=== PATIENT | male | born 1940 | race Caucasian/White ===

== ENCOUNTER 2022-10-06 21:30 | Inpatient (IN) | payer MEDICARE, BC, OTHER ==
[2022-10-06 22:45] LABS: #Basophils 0.1 thou/uL (0.0-0.2); #Eosinphils 0.1 thou/uL (0.0-0.7); #Monocytes 1.2 thou/uL (0.11-0.59); #Neutrophils 10.2 thou/uL (1.40-6.50); %Basophils 0.7 % (0.0-1.0); %Eosinophils 0.7 % (0.0-10.0); %Neutrophils 68.8 % (42.0-75.0); Hemoglobin 13.4 g/dL (14.0-18.0); Mean Corpuscular HGB CONC 31.8 g/dL (32.0-36.0); Mean Corpuscular Hemoglobin 31.3 pg (27.0-31.0); Mean Corpuscular Volume 98.4 fl (78.0-98.0); Platelet Count 245 10x3/uL (130-400); RBC Distribution Width 16.8 % (11.5-14.5); Red Blood Cell (RBC) Count 4.28 mill/uL (4.70-6.10); White Blood Cell (WBC) Count 14.9 10x3/uL (4.8-10.8)
[2022-10-06 23:08] LABS: ALT (SGPT) 18 U/L (8-55); AST (SGOT) 30 U/L (5-34); Alkaline Phosphatase 88 U/L (40-110); Anion Gap 17 mmol/L (10-20); BUN (Urea Nitrogen) 29 mg/dL (8.4-25.7); Calc. Creatinine Clearance 0 mL/min (70-130); Calcium 9.2 mg/dL (7.8-10.44); Carbon Dioxide 18 mmol/L (23-31); Chloride 108 mmol/L (98-107); Estimated GFR 53; Glucose 128 mg/dL (83-110); Potassium 4.4 mmol/L (3.5-5.1); Sodium 139 mmol/L (136-145)
[2022-10-06] MEDS ORDERED: Morphine 4 MG/ML VIAL ONE (23:30)
[2022-10-06] MEDS ORDERED: Vancomycin 1 GM/200 ML (FROZEN) BAG ONE (23:30)
[2022-10-06 23:44] LABS: INR-International Normal Ratio 1.1
[2022-10-06 23:45] LABS: PTT 27.3 sec (22.9-36.1)
[2022-10-06] MEDS ORDERED: HYDROcodone/Acetaminophen 7.5/325 mg Tablet PO PRN (23:50)
[2022-10-06] MEDS ORDERED: Morphine 4 MG/ML VIAL SLOW IVP PRN (23:50)
[2022-10-07] MEDS ORDERED: Morphine 2 MG/ML VIAL ONE (00:27)
[2022-10-07 01:35] VITALS: BMI 27.1
[2022-10-07] MEDS: Dextrose 5 % And 0.9 % NaCl 1,000 ML IV SCH ×3 (01:35→21:42)
[2022-10-07] MEDS ORDERED: Mineral Oil Sterile 10 ML VIAL ONE (06:17)
[2022-10-07] MEDS ORDERED: Bupivacaine PF 0.5% 30 ML VIAL ONE (06:17)
[2022-10-07] MEDS ORDERED: Thrombin 5000 UNITS/5 ML VIAL ONE (06:17)
[2022-10-07] MEDS ORDERED: Bacitracin Zinc Ointment 30 gm TUBE ONE (06:17)
[2022-10-07] MEDS ORDERED: Vancomycin 1 GM VIAL ONE (06:34)
[2022-10-07] MEDS ORDERED: Vancomycin 1 GM/200 ML (FROZEN) BAG ONE (06:57)
[2022-10-07] MEDS ORDERED: Phenylephrine 10 MG/ML VIAL ONE (07:06)
[2022-10-07] MEDS ORDERED: Lidocaine 1% PF 5 ML VIAL ONE (07:17)
[2022-10-07] MEDS ORDERED: PROPOFOL 200 MG/20 ML VIAL ONE (07:17)
[2022-10-07] MEDS ORDERED: Ondansetron PF 4 MG/2 ML Vial ONE (07:17)
[2022-10-07] MEDS ORDERED: Dexamethasone 20 MG/5 ML VIAL ONE (07:17)
[2022-10-07] MEDS ORDERED: Promethazine HCl 25 MG/ML VIAL IM PRN (09:00)
[2022-10-07] MEDS ORDERED: Ondansetron HCl/PF 4 MG/2 ML Vial IVP PRN (09:00)
[2022-10-07] MEDS ORDERED: fentaNYL 50 mcg/mL 1 mL Vial ONE ×2 (09:28→09:41)
[2022-10-07] MEDS: Vancomycin 1 GM in Premix Bag 1 BAG IVPB SCH (10:26)
[2022-10-07] MEDS ORDERED: NITROGLYCERIN 2.5 MG PO PRN ×2 (11:14→12:46)
[2022-10-07 16:52] LABS: #Basophils 0.1 thou/uL (0.0-0.2); #Monocytes 0.1 thou/uL (0.11-0.59); #Neutrophils 11.1 thou/uL (1.40-6.50); %Basophils 0.8 % (0.0-1.0); %Eosinophils 0.1 % (0.0-10.0); %Lymphocytes 6.6 % (21.0-51.0); %Neutrophils 88.9 % (42.0-75.0); Hemoglobin 12.9 g/dL (14.0-18.0); Mean Corpuscular HGB CONC 30.9 g/dL (32.0-36.0); Mean Corpuscular Hemoglobin 30.6 pg (27.0-31.0); Mean Platelet Volume 9.5 fL (7.4-10.4); Platelet Count 249 10x3/uL (130-400); RBC Distribution Width 16.5 % (11.5-14.5); Red Blood Cell (RBC) Count 4.21 mill/uL (4.70-6.10); White Blood Cell (WBC) Count 12.5 10x3/uL (4.8-10.8)
[2022-10-07] MEDS: Ipratropium/Albuterol 3 ML NEB NEB SCH (18:35)
[2022-10-07] MEDS: Mometasone 100 MCG HFA INHALER (RT USE) INH SCH (18:38)
[2022-10-08] MEDS: Vancomycin 1 GM in Premix Bag 1 BAG IVPB SCH (00:10)
[2022-10-08] MEDS: Ipratropium/Albuterol 3 ML NEB NEB SCH ×2 (00:29→06:59)
[2022-10-08] MEDS: Mometasone 100 MCG HFA INHALER (RT USE) INH SCH (07:03)
[2022-10-08] MEDS ORDERED: VANCOMYCIN IVPB PRN (07:13)
[2022-10-08] MEDS ORDERED: Atorvastatin Calcium 40 MG TAB PO SCH (09:00)
[2022-10-08] MEDS ORDERED: Furosemide 20 MG TAB PO SCH (09:00)
[2022-10-08] MEDS ORDERED: Furosemide 40 MG TAB PO SCH ×2 (09:00)
[2022-10-08] MEDS ORDERED: Famotidine 20 MG TAB PO SCH (09:00)
[2022-10-08] MEDS ORDERED: Aspirin 81 mg Enteric Coated Tablet PO SCH (09:00)
[2022-10-08] MEDS ORDERED: Spironolactone 25 MG TAB PO SCH (09:00)
[2022-10-08] MEDS ORDERED: Non-Formulary Item 1 EACH (Fluticasone/Umeclidin/Vilanter [Trelegy Ellipta 200-62.5-25] 1 IH SCH (09:00)
[2022-10-08 09:09] VITALS: BP 123/63; TEMP 98
== END 2022-10-08 09:34 | disposition home or self-care (01) | DRG 605 ==
LOC: EDSEX 21:30 → ERS 21:30 → SURG A 23:30
PROVIDERS: ADMIT Orthopaedic Surgery Hand Surgery; ATTEND Orthopaedic Surgery Hand Surgery
PROC: 0HBEXZZ Excision of Left Lower Arm Skin, External Approach (ICD-10-PCS; principal; 2022-10-07)
PROC: 0HBDXZZ Excision of Right Lower Arm Skin, External Approach (ICD-10-PCS; 2022-10-07)
PROC: 0HQEXZZ Repair Left Lower Arm Skin, External Approach (ICD-10-PCS; 2022-10-07)
PROC: 0HQDXZZ Repair Right Lower Arm Skin, External Approach (ICD-10-PCS; 2022-10-07)
DX: S51.012A Laceration without foreign body of left elbow, initial encounter (principal); J44.9 Chronic obstructive pulmonary disease, unspecified; I11.0 Hypertensive heart disease with heart failure; I50.9 Heart failure, unspecified; I25.10 Atherosclerotic heart disease of native coronary artery without angina pectoris; C61 Malignant neoplasm of prostate; S51.011A Laceration without foreign body of right elbow, initial encounter; S61.512A Laceration without foreign body of left wrist, initial encounter; W22.8XXA Striking against or struck by other objects, initial encounter; Z95.5 Presence of coronary angioplasty implant and graft; Z87.891 Personal history of nicotine dependence; Z88.0 Allergy status to penicillin; Z79.82 Long term (current) use of aspirin; Z79.899 Other long term (current) drug therapy
CPT/HCPCS: 36415; 51701; 71045; 80053; 83605; 85025; 85610; 85730; 93005; 94640; 94664; 96365; 96375; A6448; J1100; J2270; J2272; J2370; J2405; J2704; J3010; J3370; J3370-JW; J7042; J7620; S0020